=== PATIENT | male | born 1990 | race Caucasian/White ===

== ENCOUNTER → 2021-02-14 12:40 | Outpatient (CLI) | payer BC, SELFPAY ==
[2020-01-21 13:11] VITALS: BMI 35.6
== END ==
PROVIDERS: PCP Family Medicine; Referring Provider Family Medicine; Visit Provider Family Medicine
DX: R06.81 Apnea, not elsewhere classified (principal)
CPT/HCPCS: 95806

== ENCOUNTER → 2021-02-25 08:00 | Outpatient (CLI) | payer BC, SELFPAY ==
[2020-01-21 13:11] VITALS: BMI 35.6
== END ==
PROVIDERS: PCP Family Medicine; Visit Provider Family Medicine
DX: Z46.89 Encounter for fitting and adjustment of other specified devices (principal)